=== PATIENT | female | born 1980 | race Caucasian/White ===

== ENCOUNTER 2017-10-03 19:38 | Emergency (ER) | payer OTHER ==
[~2017-10-03] VITALS: Ht 157.5 cm; Wt 77.7 kg
[~2017-10-03 19:38] MED LIST: CIPR500S PO; IBUP-725
[2017-10-03 19:41] VITALS: Ht 157.5 cm; Wt 77.7 kg
[2017-10-03] MEDS ORDERED: IBUP-1542 PO (22:23)
[2017-10-03] MEDS ORDERED: IBUPROFEN 600 MG TAB PO ONE (22:30)
--- NOTE | 2017-10-04 06:11 | ERD ---
ER Documentation Chief Complaint Chief Complaint left breast pain extending to left axilla and arm x 1 month HPI 37-year-old female complaining of left breast pain. Patient stated that she had burning sensation of her left axilla for the past month. The pain in the left breast developed 2 weeks ago. It is so painful that she is no longer able to sleep on her left side. Patient stated that her twin sister has a history of cervical cancer that metastasized into the lungs. Patient is worried that she may have breast cancer. Denies fever or chills. Denies recent unexplained weight loss. Denies injury. LMP was about 2 weeks ago. ROS All systems reviewed and are negative except as per history of present illness. Medications Home Meds Active Scripts Ibuprofen* (Motrin*) 600 Mg Tab, 600 MG PO Q6H Y for PAIN AND OR ELEVATED TEMP, #30 TAB Prov:GURVINDER SCHMIDT [employer]. [employer] 10/03/17 Reported Medications Ciprofloxacin (Ciprofloxacin Hcl Susp) 500 Mg/5 Ml [place]..rec, 500 MG PO BID 03/15/12 Ibuprofen (Motrin) 400 Mg Tablet 01/05/11 Allergies Allergies: Coded Allergies: No Known Allergies (Verified Allergy, Mild, 03/15/12) PMhx/Soc Medical and Surgical Hx: pt denies Medical Hx, pt denies Surgical Hx History of Surgery: Yes (C SEC X3) Anesthesia Reaction: No Hx Neurological Disorder: No Hx Respiratory Disorders: Yes (asthma) Hx Cardiac Disorders: No Hx Psychiatric Problems: No Hx Miscellaneous Medical Probl: No (prediabetic) Hx Alcohol Use: No Hx Substance Use: No Hx Tobacco Use: No Smoking Status: Never smoker Physical Exam Vitals Vital Signs Date Time Temp Pulse Resp B/P Pulse Ox O2 Delivery O2 Flow Rate FiO2 10/03/17 19:41 98.9 69 20 140/90 100 Physical Exam General: Well-developed, well-nourished, conscious and coherent, in no distress Skin: Warm and dry without rash, good texture and turgor Head: Normocephalic without evidence of trauma Eyes: Sclera and conjunctivae normal; pupils equal, round, and reactive to light; extraocular movements are intact Chest: Normal AP diameter. Good expansion without retractions. Nontender. Lungs are clear to auscultate bilaterally with good tidal volume Heart: Regular rate and rhythm. No murmur, rub, or gallops heard Breast: Bilateral breasts symmetrical in appearance, no erythema or swelling. Normal fibrocystic rest is palpated, no mass. No axillary lymph nodes. Left breast tender to palpation. Extremities: Full range of motion. Good strength bilaterally. No clubbing, cyanosis, or edema. Peripheral pulses are intact. Sensation intact Neuro: Alert and oriented 4, GCS 15. Cranial nerves grossly intact. Motor and sensory exams nonfocal. Moves all extremities. Speech clear. Gait normal Results 24 hrs Current Medications Medications (Trade) Dose Ordered Sig/Pardeep Route PRN Reason Start Time Stop Time Status Last Admin Dose Admin Ibuprofen (Motrin) 600 mg ONCE ONCE PO 10/03/17 22:30 10/03/17 22:30 DC 10/03/17 22:18 Procedures/MDM Well-appearing 37-year-old presents the ED with left breast pain 2 weeks. Clinical exam is completely unremarkable. I cannot explain the cause of patient 's breast pain at this time. Low suspicion for breast cancer. However, I encourage patient to follow-up with her PCP for mammogram and or breast ultrasound evaluation. I doubt abscess or mastitis. Patient appears well, stable for discharge and outpatient management. Medical decision making shared with patient and family. Education provided to patient and family. Patient and family expressed understanding of the plan. Medications on discharge: Ibuprofen. Follow-up: Primary care provider in 2-3 days or return to ED if worse. Disclaimer: Inadvertent spelling and grammatical errors are likely due to EHR/ dictation software use and do not reflect on the overall quality of patient care. Also, please note that the electronic time recorded on this note does not necessarily reflect the actual time of the patient encounter. Departure Diagnosis: Primary Impression: Breast pain Condition: Stable Patient Instructions: Breast Self-Exam (BSE) Referrals: DOCTOR,NOT ON STAFF (PCP) [facility] YOU HAVE RECEIVED A MEDICAL SCREENING EXAM AND THE RESULTS INDICATE THAT YOU DO NOT HAVE A CONDITION THAT REQUIRES URGENT TREATMENT IN THE EMERGENCY DEPARTMENT. FURTHER EVALUATION AND TREATMENT OF YOUR CONDITION CAN WAIT UNTIL YOU ARE SEEN IN YOUR DOCTORS OFFICE WITHIN THE NEXT 1-2 DAYS. IT IS YOUR RESPONSIBILITY TO MAKE AN APPOINTMENT FOR FOLOW-UP CARE. IF YOU HAVE A PRIMARY DOCTOR --you should call your primary doctor and schedule an appointment IF YOU DO NOT HAVE A PRIMARY DOCTOR YOU CAN CALL OUR PHYSICIAN REFERRAL HOTLINE AT IF YOU CAN NOT AFFORD TO SEE A PHYSICIAN YOU CAN CHOSE FROM THE FOLLOWING [facility] CL[facility] [id number] [facility] [phone] [facility]. [facility] [address] [facility] [address] [facility]. [facility] [address] [facility]. [facility]. [address] Additional Instructions: FOLLOW UP WITH YOUR PRIMARY CARE PHYSICIAN as scheduled.Return to this facility if you are not improving as expected. GURVINDER SCHMIDT NP Oct 04, 2017 06:11
== END 2017-10-03 22:30 | disposition home or self-care (01) ==
LOC: FTE 19:38
DX: N64.4 Mastodynia (principal); J45.909 Unspecified asthma, uncomplicated
CPT/HCPCS: 99283